=== PATIENT | male | born 1980 | race Caucasian/White ===

== ENCOUNTER 2022-05-13 13:27 | Emergency (ER) | payer OTHER, SELFPAY ==
--- NOTE | 2022-05-13 13:30 | DI.RAD_ITS ---
Exam(s) XR FOOT LT COMPLETE EXAM: XR FOOT LT COMPLETE CLINICAL HISTORY: twisted foot. TECHNIQUE: 2D digital imaging was performed. COMPARISON: No exams were available for comparison FINDINGS: 3 views No evidence of fracture or diastasis of the Lisfranc joint. There is a thin corticated calcification noted on the dorsal aspect of the distal Achilles insertiona l aspect. Possibly in the bursa at this level. There is no inferior calcaneal spur. There is no ca lcification in the plantar fascia. IMPRESSION: DATA REPOSITORY: RADIATION DOSE DELIVERED:
[2022-05-13 13:33] VITALS: BP 119/88; PULSE 108; RESP 16; TEMP 36.8; O2SAT 97
--- NOTE | 2022-05-13 15:00 | ED.GENADUL_ITS ---
Discharge Plan Disposition Patient Disposition: HOME Condition: Stable Discharge Details Clinical Impression: Foot sprain Primary Care Provider: Unknown,Unknown ED Provider: Vaibhav Irvin Home Meds and New Rx's Prescriptions: Continued multivitamin Tablet 1 tab PO DAILY Discharge Instructions Instructions: Foot Sprain (ED) Additional Instructions: Wear postop shoe as needed, advance activity as tolerated. Rest, elevate, cool compresses every 2 hours for 20 minutes. [id number] Tylenol and/or Motrin as directed for discomfort. I have placed you on the care management list to help expedite outpatient primary care follow-up. If symptoms not improving in the next 5-7 days then I recommend follow-up with Dr. Carrera or someone else in his office. Referrals: Evan Carrera MD [ [facility]YS[facility]IAN] - Discharge Data Discharge Date/Time-TO BE ENTERED AT DEPARTURE: 05/13/22 15:23 Medical Decision Making 41-year-old gentleman who just prior to arrival [place], stepped over some rocks twisting his foot and felt-heard a pop. Reports mild tingling but denies numbness or weakness. Denies any other injury. Reports that his ankle is slightly sore but the pain is primarily in his foot. Plan is to obtain a foot x-ray and reassess. Clinically there is no bony point tenderness over the lateral malleolus I do not believe that a x-ray dedicated specifically to the ankle is necessary. X-ray does not reveal any fracture or evidence of diastases of the Lisfranc joint. Discussed x-ray findings with patient. Will place into a short walking boot. Patient tolerated the walking boot well and did not feel as though a set of c rutches was also necessary. We will place on the care management list to help expedite outpatient primary care follow-up. Standard discharge and return precautions were provided. Patient understands, is agreeable to this plan, and has no additional questions or concerns upon discharge. This documentation was generated using [employer] system, please disregard any oddities of phrase or misspellings. Imaging Data Radiologic Study: Attestation: I personally reviewed and interpreted this imaging study as follows: Imaging: X-Ray Radiologist's impression: Exam(s) XR FOOT LT COMPLETE EXAM: XR FOOT LT COMPLETE CLINICAL HISTORY: twisted foot. TECHNIQUE: 2D digital imaging was performed. COMPARISON: No exams were available for comparison FINDINGS: 3 views No evidence of fracture or diastasis of the Lisfranc joint. There is a thin corticated calcification noted on the dorsal aspect of the distal Achilles insertional aspect. Possibly in the bursa at this level. There is no inferior calcaneal spur. There is no calcification in the plantar fascia. HPI General Mode of arrival: ambulatory . Date/Time Provider Initiated Documentation: 05/13/22 13:37 . Limitations to Documentation: no limitations . Information obtained by: patient . History of Present Illness 41 year old M presents to the emergency department with the chief complaint of L foot pain, described as moderate, with intensity rated at 6. Quality is described as aching, and is localized to the left and lower extremity. Patient reports no radiation. Patient started experiencing this hour(s) (1) and it has been constant. Immobilization improves symptom(s), Movement worsens symptoms . Patient notes no other symptoms.. Patient did receive the following treatments prior to arrival, none Related Data Home Medications Medication Instructions Recorded Confirmed multivitamin 1 tab PO DAILY 05/13/22 05/13/22 Allergies Allergy/AdvReac Type Severity Reaction Status Date / Time No Known Allergies Allergy Unverified 05/13/22 13:36 General Stated Complaint: Orthopedic ADIN: 4 Review of Systems Constitutional Constitutional: Denies fever(s) and Denies weakness Musculoskeletal Musculoskeletal: Denies deformity, Denies numbness, Reports stiffness and Reports tingling Integumentary/Breasts Skin/Breast: Denies erythema Neurologic Neurologic: Denies numbness, Reports tingling and Denies weakness PFSH All Active Problems Foot sprain (Acute) Social History Smoking/Tobacco Use Status: Never Smoking risk assessment performed?: Yes Alcohol Intake: current Alcohol Intake frequency: holidays/special occasions only Drug use: Never Substance use type: does not use Exam Const General: cooperative, healthy appearing, comfortable and no acute distress Orientation: alert and awake HENND Head: normal to inspection, normocephalic and atraumatic Eyes Conjunctivae: conjunctivae normal Neck Neck: normal visual inspection, trachea midline and supple Resp Effort & Inspection: normal respiratory effort and able to speak in complete sentences Cardio Rate: regular rate Rhythm: regular rhythm Skin General skin exam: no rashes or lesions noted Neuro General: patient alert, patient awake, moves all extremities and no focal motor deficits Cognition: normal cognition Speech: speech normal Gait: antalgic Motor: muscle tone normal throughout Sensory Exam: no sensory deficits noted Extrem General: full ROM and capillary refill normal Other: Left foot and ankle, skin is intact, neuro, vascular, tendon intact. There is diffuse discomfort across the dorsum and lateral aspect of the foot with swelling and ecchymosis. There is minimal discomfort just inferior to the lateral malleolus but there is no bony point tenderness. Normal capillary refill and dorsalis pedal pulse. Achilles tendon intact. Psych Appearance: grossly normal Mental Status: mental status grossly normal Course Vital Signs Vital signs: Vital Signs Temperature 36.8 C 05/13/22 13:33 Pulse 108 H 05/13/22 13:33 Respiratory Rate 16 05/13/22 13:33 Blood Pressure 119/88 05/13/22 13:33 Pulse Oximetry 97 05/13/22 13:33 Temperature 36.8 C 05/13/22 13:33 Pulse 108 H 05/13/22 13:33 Respiratory Rate 16 05/13/22 13:33 Respiratory Effort Non-Labored 05/13/22 13:38 Blood Pressure 119/88 05/13/22 13:33 Pulse Oximetry 97 05/13/22 13:33 Pain Level 5 05/13/22 13:38
--- NOTE | 2022-05-13 15:40 | NUR.NOTE ---
Nursing Note: Referral given to Care Management needs PCP, establish care routine follow up.
--- NOTE | 2022-05-14 13:03 | CMACTNOTE_ITS ---
- If Service Date Differs Date of service: 05/14/22 Time of Service: 13:03 Care Management Activity Note Dinh is seen in the ED for a foot sprain. At the request of ED provider, CM coordinates a referral to BRENTON Aparicio, of [facility], on-call provider, to assist Dinh in obtaining a follow up appointment and in establishing care with a PCP.
== END 2022-05-13 15:23 | disposition home or self-care (01) ==
PROVIDERS: Emergency Provider Physician Assistant
DX: S93.692A Other sprain of left foot, initial encounter (principal); X50.1XXA Overexertion from prolonged static or awkward postures, initial encounter
CPT/HCPCS: 29515; 99283; 73630